=== PATIENT | female | born 1965 | race American Indian/Alaskan Native ===

== ENCOUNTER 2017-07-21 13:00 | Emergency (ER) | payer BC ==
[2017-07-21 13:01] VITALS: BMI 44.4
[2017-07-21 13:16] VITALS: RESP 16; TEMP 97.9
--- NOTE | 2017-07-21 14:07 | ED PDOC ---
Arrival/HPI - General Chief Complaint: Trauma Time Seen by Provider: 07/21/17 14:03 Historian: Patient - History of Present Illness Narrative History of Present Illness (Text): 07/21/17 14:04 This 51 yo female presents to this ED c/o left wrist, and left foot pain x 3 days. Patient stated she tripped and fell on the floor forward. Denies head injury, neck pain, back pain, hip pain, knee pain, n/v, or abnormal gait. Time/Duration: Other (3 days) Quality: Aching Context: Home Past Medical History - Provider Review Nursing Documentation Reviewed: Yes - Infectious Disease Hx of Infectious Diseases: None - Cardiac Hx Cardiac Disorders: Yes Hx Hypertension: Yes - Pulmonary Hx Respiratory Disorders: No - Neurological Hx Neurological Disorder: No - HEENT Hx HEENT Disorder: No - Renal Hx Renal Disorder: No - Endocrine/Metabolic Hx Endocrine Disorders: No Hx Diabetes Mellitus Type 2: Yes - Hematological/Oncological Hx Blood Disorders: No - Integumentary Hx Dermatological Disorder: No - Musculoskeletal/Rheumatological Hx Musculoskeletal Disorders: No - Gastrointestinal Hx Gastrointestinal Disorders: No - Genitourinary/Gynecological Hx Genitourinary Disorders: No - Psychiatric Hx Psychophysiologic Disorder: No Hx Depression: No Hx Emotional Abuse: No Hx Physical Abuse: No Hx Substance Use: No - Past Surgical History Past Surgical History: No Previous - Anesthesia Hx Anesthesia: No Hx Anesthesia Reactions: No - Suicidal Assessment Feels Threatened In Home Enviroment: No Family/Social History - Physician Review Nursing Documentation Reviewed: Yes Family/Social History: Other (non-contributory) Smoking Status: Never Smoked Hx Alcohol Use: No Hx Substance Use: No Allergies/Home Meds Allergies/Adverse Reactions: Allergies No Known Allergies Allergy (Verified 07/21/17 13:16) Home Medications: Home Meds Medication Instructions Recorded Confirmed metFORMIN [glucOPHAGE] 1,000 mg PO BID 04/10/14 10/08/16 Review of Systems - Review of Systems Constitutional: Normal. absent: Fatigue, Weight Change, Fevers Eyes: Normal ENT: Normal Respiratory: Normal. absent: SOB, Cough Cardiovascular: Normal. absent: Chest Pain, Palpitations Gastrointestinal: Normal. absent: Abdominal Pain, Nausea, Vomiting Genitourinary Female: Normal. absent: Dysuria, Frequency, Hematuria Musculoskeletal: Other (see hpi) Skin: Normal Neurological: Normal Endocrine: Normal Hemo/Lymphatic: Normal Psychiatric: Normal Physical Exam Vital Signs Temp Pulse Resp BP Pulse Ox 07/21/17 13:11 97.9 F 79 16 100/59 L 97 Temperature: Afebrile Blood Pressure: Normal Pulse: Regular Respiratory Rate: Normal Appearance: Positive for: Well-Appearing, Non-Toxic, Comfortable Pain Distress: None Mental Status: Positive for: Alert and Oriented X 3 - Systems Exam Head: Present: Atraumatic, Normocephalic Pupils: Present: PERRL Extroacular Muscles: Present: EOMI Conjunctiva: Present: Normal Mouth: Present: Moist Mucous Membranes Neck: Present: Normal Range of Motion Respiratory/Chest: Present: Clear to Auscultation, Good Air Exchange. No: Respiratory Distress, Accessory Muscle Use Cardiovascular: Present: Regular Rate and Rhythm, Normal S1, S2. No: Murmurs Abdomen: Present: Normal Bowel Sounds. No: Tenderness, Distention, Peritoneal Signs Back: Present: Normal Inspection Upper Extremity: Present: Normal Inspection, Normal ROM, NORMAL PULSES, Tenderness (Mild tenderness distal radius area. no ecchymosis, or swelling), Neurovascularly Intact, Capillary Refill < 2s. No: Cyanosis, Edema Lower Extremity: Present: Normal Inspection, NORMAL PULSES, Normal ROM, Tenderness (mild tenderness over base of 3rd toe. No swelling, or ecchymosis), Neurovascularly Intact, Capillary Refill < 2 s. No: Edema, CALF TENDERNESS, Swelling, Erythema, Temperature Abnormalties Neurological: Present: GCS=15, CN II-XII Intact, Speech Normal Skin: Present: Warm, Dry, Normal Color. No: Rashes Psychiatric: Present: Alert, Oriented x 3, Normal Insight, Normal Concentration Medical Decision Making ED Course and Treatment: 07/21/17 14:53 Re-evaluation. Patient feels better. Discussed results and plan with patient who expresses understanding. Counseling was provided regarding the diagnosis and prognosis. All questions answered and there is agreement with the plan to discharge home with instructions. Patient stable for discharge. Return if symptoms persist or worsen. Call private applied researcher for revaluation Re-evaluation Time: 14:54 Reassessment Condition: Re-examined, Improved - RAD Interpretation Radiology Orders: 07/21/17 14:03 FOOT LEFT 3 VIEWS ROUTINE [RAD] Stat WRIST, LEFT 3 VIEWS [RAD] Stat - Medication Orders Current Medication Orders: Discontinued Medications Ketorolac Tromethamine (Toradol) 30 mg IM STAT STA Stop: 07/21/17 14:04 Last Admin: 07/21/17 14:24 Dose: 30 mg Disposition/Present on Arrival - Present on Arrival Any Indicators Present on Arrival: No History of DVT/PE: No History of Uncontrolled Diabetes: No Urinary Catheter: No History of Decub. Ulcer: No History Surgical Site Infection Following: None - Disposition Have Diagnosis and Disposition been Completed?: Yes Diagnosis: Toe fracture, left, Wrist pain Disposition: HOME/ ROUTINE Disposition Time: 14:54 Patient Plan: Discharge Patient Problems: Current Active Problems Problem Status Onset Toe fracture, left Acute Wrist pain Acute Condition: GOOD Discharge Instructions (ExitCare): Toe Fracture (ED) Additional Instructions: Call private Military Technology Specialist for follow up visit in 1-2 days. Take medication as instructed. Return to emergency if pain worsen. Prescriptions: traMADol [Ultram] 50 mg PO TID PRN #10 tab PRN Reason: Pain, Severe (8-10) Referrals: PCP,NO [Primary Care Provider] - Follow up with primary Miguel Bernal DPM [Staff Provider] - Follow up with primary Forms: [employer] ([place]ian), WORK NOTE
--- NOTE | 2017-07-21 14:43 | RAD ---
PROCEDURE: Left Wrist Radiographs. HISTORY: pain s/p fall COMPARISON: None. FINDINGS: BONES: Normal. No fracture. JOINTS: Normal. No dislocation. SOFT TISSUES: Normal. OTHER FINDINGS: None. IMPRESSION: Normal left wrist radiographs.
--- NOTE | 2017-07-21 14:45 | RAD ---
PROCEDURE: Left Foot Radiographs. HISTORY: pain COMPARISON: None. FINDINGS: BONES: Normal. No fracture. JOINTS: Normal. SOFT TISSUES: Normal. OTHER FINDINGS: None. IMPRESSION: Normal left foot radiographs.
[2017-07-21 15:09] VITALS: BP 120/67; PULSE 76; O2SAT 100
== END 2017-07-21 15:11 | disposition home or self-care (01) ==
LOC: ED 13:00
DX: S92.502A Displaced unspecified fracture of left lesser toe(s), initial encounter for closed fracture (principal); W01.0XXA Fall on same level from slipping, tripping and stumbling without subsequent striking against object, initial encounter; Y93.89 Activity, other specified; Y92.89 Other specified places as the place of occurrence of the external cause; M25.532 Pain in left wrist
CPT/HCPCS: 73110; 73630; 96372; 99285; J1885

== ENCOUNTER 2017-08-01 09:31 | Emergency (ER) | payer BC ==
[2017-08-01 09:32] VITALS: BMI 44.4
--- NOTE | 2017-08-01 09:46 | ED PDOC ---
Arrival/HPI - General Time Seen by Provider: 08/01/17 09:45 Historian: Patient - History of Present Illness Narrative History of Present Illness (Text): 08/01/17 09:45 52 year old female, pmh including diabetes/bursitis nkda, post menopausal, complaining of lt. wrist pain x 2 weeks s/p fall. Aching pain, aggravated by movement, no numbness ro tingling, no hand or finger pain, no night sweat, no dizziness, no rash, no other medical or psychological complaints. Pt. has no head or neck injury. Past Medical History - Provider Review Nursing Documentation Reviewed: Yes - Infectious Disease Hx of Infectious Diseases: None - Cardiac Hx Cardiac Disorders: Yes Hx Hypertension: Yes - Pulmonary Hx Respiratory Disorders: No - Neurological Hx Neurological Disorder: No - HEENT Hx HEENT Disorder: No - Renal Hx Renal Disorder: No - Endocrine/Metabolic Hx Endocrine Disorders: No Hx Diabetes Mellitus Type 2: Yes - Hematological/Oncological Hx Blood Disorders: No - Integumentary Hx Dermatological Disorder: No - Musculoskeletal/Rheumatological Hx Musculoskeletal Disorders: No - Gastrointestinal Hx Gastrointestinal Disorders: No - Genitourinary/Gynecological Hx Genitourinary Disorders: No - Psychiatric Hx Psychophysiologic Disorder: No Hx Depression: No Hx Emotional Abuse: No Hx Physical Abuse: No Hx Substance Use: No - Past Surgical History Past Surgical History: No Previous - Anesthesia Hx Anesthesia: No Hx Anesthesia Reactions: No - Suicidal Assessment Feels Threatened In Home Enviroment: No Family/Social History - Physician Review Nursing Documentation Reviewed: Yes Family/Social History: Unknown Family HX Smoking Status: Never Smoked Hx Alcohol Use: No Hx Substance Use: No Allergies/Home Meds Allergies/Adverse Reactions: Allergies No Known Allergies Allergy (Verified 07/21/17 13:16) Home Medications: Home Meds Medication Instructions Recorded Confirmed metFORMIN [glucOPHAGE] 1,000 mg PO BID 04/10/14 08/01/17 Review of Systems - Review of Systems Constitutional: absent: Fatigue, Fevers Eyes: absent: Vision Changes ENT: absent: Hearing Changes Respiratory: absent: SOB, Cough Cardiovascular: absent: Chest Pain Gastrointestinal: absent: Abdominal Pain, Diarrhea, Nausea, Vomiting Musculoskeletal: Arthralgias. absent: Back Pain, Neck Pain, Joint Swelling, Myalgias Skin: absent: Rash, Pruritis, Skin Lesions Neurological: absent: Headache, Dizziness Psychiatric: absent: Anxiety, Depression, Suicidal Ideation Physical Exam Vital Signs Reviewed: Yes Vital Signs Temp Pulse Resp BP Pulse Ox 08/01/17 11:02 69 18 112/74 98 08/01/17 09:53 97.9 F 72 18 110/75 97 Temperature: Afebrile Blood Pressure: Normal Pulse: Regular Respiratory Rate: Normal Appearance: Positive for: Well-Appearing, Non-Toxic Pain Distress: Moderate Mental Status: Positive for: Alert and Oriented X 3 - Systems Exam Head: Present: Atraumatic, Normocephalic Pupils: Present: PERRL Extroacular Muscles: Present: EOMI Conjunctiva: Present: Normal Ears: Present: NORMAL TM, Normal Canal. No: Erythema Mouth: Present: Moist Mucous Membranes Neck: Present: Normal Range of Motion Respiratory/Chest: Present: Clear to Auscultation, Good Air Exchange. No: Respiratory Distress, Accessory Muscle Use Cardiovascular: Present: Regular Rate and Rhythm, Normal S1, S2. No: Murmurs Abdomen: Present: Normal Bowel Sounds. No: Tenderness, Distention, Peritoneal Signs Back: Present: Normal Inspection Upper Extremity: Present: Normal Inspection, Other (Lt. wrist/hand: +ttp and mild swelling on the distal radius region, no hand or finger tenderness, no scaphoid tenderness, FROM without limitation, sensation intact, motor 5/5, + radial pulse, capillary refill< 2 seconds, neurovascular intact. ). No: Cyanosis, Edema Lower Extremity: Present: Normal Inspection. No: Edema Neurological: Present: GCS=15, CN II-XII Intact, Speech Normal Skin: Present: Warm, Dry, Normal Color. No: Rashes Psychiatric: Present: Alert, Oriented x 3, Normal Insight, Normal Concentration Medical Decision Making ED Course and Treatment: 08/01/17 10:25 -motrin/percocet/lidoderm patch -wrist splint -xray 08/01/17 10:48 -xray reviewed show no fracture or dislocation. there is no scaphoid tenderness on clinical exam. -Discharge home with naproxen, voltaren gel, wrist splint, sling, ice compression, avoid strenuous exercise or activity, follow up with your own pmd and orthopedic within 2 days, return to the ER for any new or worsening signs or symptoms. - RAD Interpretation Radiology Orders: 08/01/17 10:22 WRIST, LEFT 3 VIEWS [RAD] Stat no fracture or dislocation. Supervisor Cold Rolling: Radiologist - Medication Orders Current Medication Orders: Discontinued Medications Ibuprofen (Motrin Tab) 600 mg PO STAT STA Stop: 08/01/17 10:23 Last Admin: 08/01/17 11:07 Dose: 600 mg MAR Pain/Vitals Document 08/01/17 11:07 SF (Rec: 08/01/17 11:07 SF [facility]) Pain Reassessment Is This A Pain ReAssessment? Yes Sleep Is patient sleeping during reassessment? No Presence of Pain Presence of Pain Yes Lidocaine (Lidoderm) 1 ea TD STAT STA Stop: 08/01/17 10:49 Last Admin: 08/01/17 11:07 Dose: 1 ea MAR Transdermal Patch Site Document 08/01/17 11:07 SF (Rec: 08/01/17 11:08 [email or web address] Transdermal Patch Site Transdermal Patch Site Left Shoulder Oxycodone/Acetaminophen (Percocet 5/325 Mg Tab) 1 tab PO STAT STA Stop: 08/01/17 10:23 Last Admin: 08/01/17 11:07 Dose: 1 tab MAR Pain Assessment Document 08/01/17 11:07 SF (Rec: 08/01/17 11:07 SF [email or web address] Pain Reassessment Is this a pain reassessment? Yes Sleep Is patient sleeping during reassessment? No Presence of Pain Presence of Pain Yes - PA / APPLICATION SUPPORT ANALYST / Resident Statement MD/DO has reviewed & agrees with the documentation as recorded. Disposition/Present on Arrival - Present on Arrival Any Indicators Present on Arrival: No History of DVT/PE: No History of Uncontrolled Diabetes: No Urinary Catheter: No History of Decub. Ulcer: No History Surgical Site Infection Following: None - Disposition Have Diagnosis and Disposition been Completed?: Yes Diagnosis: Wrist injury, Tendinitis Disposition: HOME/ ROUTINE Disposition Time: 10:25 Patient Plan: Discharge Patient Problems: Current Active Problems Problem Status Onset Tendinitis Acute Wrist injury Acute Condition: GOOD Additional Instructions: -Discharge home with naproxen, voltaren gel, wrist splint, sling, ice compression, avoid strenuous exercise or activity, follow up with your own pmd and orthopedic within 2 days, return to the ER for any new or worsening signs or symptoms. Prescriptions: Diclofenac Sodium [Voltaren] 1 appful TP BID PRN #100 gel..gram. PRN Reason: Other Naproxen 500 mg PO BID PRN #22 tab PRN Reason: Other Referrals: PCP,NO [Non-Staff] - Follow up with primary Dwayne Coppola DO [Staff Provider] - Follow up with primary Forms: WORK NOTE
[2017-08-01 09:56] VITALS: TEMP 97.9
[2017-08-01] MEDS ORDERED: Oxycodone/Acetaminophen 5/325 mg Tab PO STA (10:22)
[2017-08-01] MEDS ORDERED: Lidocaine 5% Patch TD STA (10:48)
--- NOTE | 2017-08-01 10:53 | RAD ---
PROCEDURE: Left Wrist Radiographs. HISTORY: Left wrist pain x2 weeks COMPARISON: Comparison made with prior study 07/21/2017 FINDINGS: BONES: No evidence of acute displaced fracture nor dislocation. There is no evidence of periosteal reaction seen. No cortical destructive changes. JOINTS: As mentioned above, no evidence of dislocation or subluxation. Joint spaces preserved. SOFT TISSUES: Soft tissues grossly unremarkable. OTHER FINDINGS: None. IMPRESSION: No evidence of acute displaced fracture nor dislocation. If symptoms persist consider follow-up MRI.
[2017-08-01 11:19] VITALS: BP 115/80; PULSE 62; RESP 17; O2SAT 99
== END 2017-08-01 11:19 | disposition home or self-care (01) ==
LOC: ED 09:31
DX: S69.92XA Unspecified injury of left wrist, hand and finger(s), initial encounter (principal); W19.XXXA Unspecified fall, initial encounter; Y93.9 Activity, unspecified; Y92.9 Unspecified place or not applicable; M77.8 Other enthesopathies, not elsewhere classified

== ENCOUNTER 2019-01-13 15:57 | Emergency (ER) | payer BC ==
[2019-01-13 15:57] VITALS: BMI 44.4
[2019-01-13 16:30] VITALS: TEMP 98.4
--- NOTE | 2019-01-13 17:08 | ED PDOC ---
Arrival/HPI - General Chief Complaint: Back Pain Time Seen by Provider: 01/13/19 16:26 Historian: Patient - History of Present Illness Narrative History of Present Illness (Text): 01/13/19 17:07 53 year old female with a past medical history of diabetes and bursitis presents to the Emergency department complaining of pain in her lower back, bilaterally that radiates to her bilateral hips, s/p a slip and fall on ice 2 days ago. Patient states that she fell on her buttocks sustaining discomfort to her lower back, which is exacerbated with movement and palpation. She reports that the pain persisted since the fall which prompted her to visit the Emergency department today. She also reports taking alleve with intermittent relief. Patient denies any head strike, LOC, shortness of breath, vomiting, nausea, chest pain, or any other complaints. Time/Duration: < week Symptom Onset: Gradual Symptom Course: Unchanged Activities at Onset: Light Context: Walking Past Medical History - Provider Review Nursing Documentation Reviewed: Yes - Infectious Disease Hx of Infectious Diseases: None - Reproductive Menopause: Yes - Cardiac Hx Cardiac Disorders: Yes Hx Hypertension: Yes - Pulmonary Hx Respiratory Disorders: No - Neurological Hx Neurological Disorder: No - HEENT Hx HEENT Disorder: No - Renal Hx Renal Disorder: No - Endocrine/Metabolic Hx Endocrine Disorders: Yes Hx Diabetes Mellitus Type 2: Yes - Hematological/Oncological Hx Blood Disorders: No - Integumentary Hx Dermatological Disorder: No - Musculoskeletal/Rheumatological Hx Musculoskeletal Disorders: No - Gastrointestinal Hx Gastrointestinal Disorders: No - Genitourinary/Gynecological Hx Genitourinary Disorders: No - Psychiatric Hx Psychophysiologic Disorder: No Hx Substance Use: No - Past Surgical History Past Surgical History: No Previous - Surgical History Hx Orthopedic Surgery: Yes - Anesthesia Hx Anesthesia: No Hx Anesthesia Reactions: No - Suicidal Assessment Feels Threatened In Home Enviroment: No Family/Social History - Physician Review Nursing Documentation Reviewed: Yes Family/Social History: Unknown Family HX Smoking Status: Never Smoked Hx Alcohol Use: No Hx Substance Use: No Allergies/Home Meds Allergies/Adverse Reactions: Allergies No Known Allergies Allergy (Verified 01/13/19 16:26) Home Medications: Home Meds Medication Instructions Recorded Confirmed metFORMIN [glucOPHAGE] 1,000 mg PO BID 04/10/14 01/13/19 Review of Systems - Physician Review All systems were reviewed & negative as marked: Yes - Review of Systems Respiratory: absent: SOB Cardiovascular: absent: Chest Pain Musculoskeletal: Back Pain (bilaterally ), Other (hip pain, bilaterally) Physical Exam - Physical Exam Narrative Physical Exam (Text): 01/13/19 17:23 Constitutional: No acute distress. Head: Normocephalic. Atraumatic. Eyes: PERRL. ENT: Moist mucous membranes. Neck: Supple. No midline tenderness. Cardiovascular: Regular rate. Chest: No tenderness. Respiratory: Clear to auscultation bilaterally. GI: Soft. Nontender. Nondistended. Back: Bilateral lumbar tenderness, paraspinal Musculoskeletal: Tenderness over right hip. No tenderness or swelling of extremities. Full ROM x4 Skin: No rash. No ecchymosis Neurologic: Alert, no focal deficit. Vital Signs Reviewed: Yes Vital Signs Temp Pulse Resp BP Pulse Ox 01/13/19 16:26 98.4 F 73 16 167/94 H 99 Temperature: Afebrile Blood Pressure: Normal Pulse: Regular Respiratory Rate: Normal Appearance: Positive for: Well-Appearing, Non-Toxic, Comfortable Pain Distress: None Mental Status: Positive for: Alert and Oriented X 3 Medical Decision Making ED Course and Treatment: 01/13/19 17:25 Impression: 53 year old female presents to the Emergency department complaining of pain her lower back, bilaterally that radiates to her hip, bilaterally s/p slip and fall on ice 2 days ago. Plan: -- X-ray bilateral hips, -- X- ray spine -- Reassess and disposition Prior Visits: Notes and results from previous visits were reviewed. Progress Notes: 01/13/19 19:08 X-ray of Lumbar Spine reviewed by radiologist, shows: IMPRESSION: No acute fracture, spondylolysis or spondylolisthesis. Mild multilevel degenerative disc disease, worse at L4-5 X-ray of Hip/Pelvis reviewed by radiologist, shows no acute displaced fracture or dislocation. - RAD Interpretation Radiology Orders: 01/13/19 17:02 Hip Bilateral [HIP MIN 3V W/ PELVIS SIDNEY] [RAD] Stat LS SPINE AP/LAT [RAD] Stat Case Sealer: Radiologist - Scribe Statement The provider has reviewed the documentation as recorded by the Ozibcatrina Israel, shira with Robert. All medical record entries made by the Scribe were at my direction and personally dictated by me. I have reviewed the chart and agree that the record accurately reflects my personal performance of the history, physical exam, medical decision making, and the department course for this patient. I have also personally directed, reviewed, and agree with the discharge instructions and disposition. Disposition/Present on Arrival - Present on Arrival Any Indicators Present on Arrival: No History of DVT/PE: No History of Uncontrolled Diabetes: No Urinary Catheter: No History of Decub. Ulcer: No History Surgical Site Infection Following: None - Disposition Have Diagnosis and Disposition been Completed?: Yes Diagnosis: Back pain Disposition: HOME/ ROUTINE Disposition Time: 19:02 Patient Plan: Discharge Condition: STABLE Discharge Instructions (ExitCare): Contusion (DC) Prescriptions: Ibuprofen [Motrin] 600 mg PO Q6 #25 tab Forms: [facility] ([place]i), WORK NOTE
--- NOTE | 2019-01-13 18:48 | RAD ---
PROCEDURE: Radiographs of the pelvis and bilateral hips HISTORY: fall, hip pain COMPARISON: None. FINDINGS: BONES: Pelvis: Unremarkable. Right hip:Unremarkable. Left hip:Unremarkable. JOINTS: Right hip: Unremarkable. Left hip: Unremarkable. Sacroiliac Joints: Unremarkable. Pubic symphysis: Unremarkable. SOFT TISSUES: The periarticular soft tissues are normal. Small calcific densities lateral to the left acetabulum and superior to the left greater trochanter likely represents labrum and tendon calcifications respectively. OTHER FINDINGS: There are small phleboliths in the pelvis. IMPRESSION: No acute displaced fracture or dislocation. Please note occult fractures cannot be excluded on plain radiographs. If there is a persistent clinical concern, an MRI of the hip may be performed for further evaluation.
--- NOTE | 2019-01-13 18:49 | RAD ---
Date of service: 01/13/2019 PROCEDURE: Radiographs of the Lumbar Spine. HISTORY: fall, back pain COMPARISON: No prior. FINDINGS: BONES: There is normal alignment of the lumbar vertebral bodies. There is normal lumbar lordosis. There is no acute fracture, spondylolysis or spondylolisthesis. Bone mineralization is normal. DISC SPACES: There is mild multilevel degenerative disc disease with anterior spurring, reduced disc heights and multilevel facet arthropathy, worse at L4-5. OTHER FINDINGS: There are no pathologic soft tissue calcifications. Both sacroiliac joints are normal. IMPRESSION: No acute fracture, spondylolysis or spondylolisthesis. Mild multilevel degenerative disc disease, worse at L4-5 with
[2019-01-13 18:58] VITALS: BP 180/88; PULSE 70; RESP 18; O2SAT 100
== END 2019-01-13 19:19 | disposition home or self-care (01) ==
LOC: ED 15:57
DX: M54.9 Dorsalgia, unspecified (principal); I10 Essential (primary) hypertension